=== PATIENT | male | born 1980 | race African-American/Black ===

== ENCOUNTER 2016-11-24 15:58 | Inpatient (IN) | payer OTHER ==
[~2016-11-24] VITALS: Ht 182.9 cm; Wt 95.3 kg
--- NOTE | ~2016-11-24 | HP ---
Unit #: [id number] #: [id number] Patient: JC MOLINA JR [id number] [place] [address] [id number] MR#: [id number] NAME: JC MOLINA JR ROOM: P174 Age: 36 Sex: M Admission Date: 11/24/2016 : 1980 Attending Physician: Shahzad Salazar M.D. Admitting Physician: Shahzad Salazar M.D. Primary Care Physician: Primary Care Physician No HISTORY AND PHYSICAL HISTORY OF PRESENT ILLNESS Jc is a 36-year-old male admitted to [facility] because of his drug use. He uses heroin. PAST MEDICAL HISTORY Long history of opioid abuse to include heroin. PAST SURGICAL HISTORY Nothing reported. ALLERGIES No known drug allergies. SOCIAL HISTORY Smokes 1 pack per day. Drinks alcohol rarely. Admits to using marijuana on a daily basis and has a long history of opioid abuse to include daily use of heroin. FAMILY HISTORY Medically noncontributory. REVIEW OF SYSTEMS CONSTITUTIONAL: No fever or chills. HEENT: Denies any sore throat, ear pain or runny nose. CARDIOVASCULAR: Denies chest pain, irregular heart rhythm or palpitations. CHEST: Denies shortness of breath or cough. No hemoptysis. GASTROINTESTINAL: Denies nausea, vomiting, diarrhea or chronic constipation. ENDOCRINE: Denies history of increased thirst or urination. No recent significant weight loss or gain. GENITOURINARY: Denies dysuria, frequency, or hematuria. SKIN: Denies any rashes. HEMATOLOGIC: Denies history of increased bleeding or bruising. MUSCULOSKELETAL: Denies any hot, swollen joints. No generalized muscle pain. NEUROLOGIC: Denies problems with vision or speech. No frequent, severe headaches. No numbness, tingling or weakness in any extremities. Denies loss of bladder or bowel control. CURRENT MEDICATIONS Detox protocol. PHYSICAL EXAMINATION Unit #: [id number] #: [id number] Patient: JC MOLINA JR GENERAL: Alert, well-nourished, in no apparent distress. VITAL SIGNS: Blood pressure 132/94, heart rate 70, respirations 16, temperature 98.6. WEIGHT: 210. HEIGHT: 6 feet 0 inches. SKIN: Warm and dry without rash or lesion. HEENT: Normocephalic. TMs not viewed. Oral and nasal passages clear. Conjunctivae clear. PERRLA. EOMs intact. NECK: Supple without lymphadenopathy or thyromegaly. HEART: Regular rate and rhythm without murmur. LUNGS: Clear. ABDOMEN: Soft, nontender. : Not done. EXTREMITIES: No evidence of cyanosis, clubbing or edema. Moves all without focal deficit. NEUROLOGICAL: Grossly within normal limits. Cranial Nerves: II: Visual molina are intact. III, IV AND : Extraocular movements are intact. Pupils are equal, round and reactive to light. V: Facial sensation is grossly normal. VII: Facial movements and expression are normal. VIII: Auditory acuity grossly intact. IX, X: Uvula is midline. Phonation is normal. XI: Patient shrugs shoulders and turns head normally. XII: Tongue protrudes in the midline. Sensory and Motor Function: Sensory and motor sensation is grossly normal. Motor: moves all extremities well. Coordination: Gait is normal. Deep Tendon Reflexes: Intact. IMPRESSION Psychiatric admission. RECOMMENDATIONS PSYCHIATRIC: Per psychiatrist. MEDICAL: See no contraindication to participate in facility's activities. MEDICAL PROGNOSIS Good. MEDICAL CONDITION Stable. Dictated by... Kylie Tamez P.A.-C. for Lupe Monahan/shaun TD: 11/25/2016 21:41 JOB #: [id number] Unit #: [id number] #: [id number] Patient: JC MOLINA HISTORY AND PHYSICAL Page 1 of 1 X Kylie Tamez X HISTORY AND PHYSICAL
--- NOTE | ~2016-11-24 | PN ---
Unit #: [id number] #: [id number] Patient: JC MOLINA JR [id number] [facility] [address] [place] [address] [id number] MR#: [id number] NAME: JC MOLINA JR ROOM: [facility] Age: 36 Sex: M Admission Date: 11/24/2016 : 1980 Attending Physician: Shahzad Salazar M.D. Admitting Physician: Shahzad Salazar M.D. Primary Care Physician: Primary Care Physician Jaki ALVAREZ NOTES DATE 11/27/2016 DISCUSSION Jc Molina is a 36-year-old male, seen on 11/27/2016. The patient interviewed, chart reviewed, and obtained information from the nursing staff. The patient was compliant and cooperative. Mood sad and dysphoric, but isolative. The patient's vital signs stable, 98.4, 105, 123/83. Seclusive, isolative. REVIEW OF SYSTEMS Complete review of systems unremarkable. MENTAL STATUS EXAMINATION General appearance: Patient dressed casually. Attention span and concentration, fair. Oriented in time, place, and person. Mood and affect, sad and dysphoric. Speech, monotone. Thought process, concrete. The patient denied any thoughts of harming self or others. Recent and remote memory, poor. Insight and judgment, poor. DIAGNOSES 1. Major depressive disorder, recurrent, severe, F33.2. 2. Opiate use disorder, severe, F11.20. ASSESSMENT/PLAN Advised to continue with the current medication and therapeutic protocol, and if needed consider further adjustment of medication. Dictated by... Lupe Echavarria/ermelinda TD: 11/30/2016 07:48 JOB #: [id number] Unit #: [id number] #: [id number] Patient: JC MOLINA JR [place] PROGRESS NOTES Page 1 of 1 X Shahzad Salazar MD PROGRESS NOTE
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
--- NOTE | ~2016-11-24 | PN ---
Unit #: [id number] #: [id number] Patient: JC MOLINA JR [id number] [facility] [address] [place] [address] [id number] MR#: [id number] NAME: JC MOLINA JR ROOM: 74 Age: 36 Sex: M Admission Date: 11/24/2016 : 1980 Attending Physician: Shahzad Salazar M.D. Admitting Physician: Shahzad Salazar M.D. Primary Care Physician: Primary Care Physician Jaki KAMINSKI PROGRESS NOTES DATE 11/28/2016 DISCUSSION Jc Molina is a 36-year-old male, seen on 11/28/2016. The patient interviewed, chart reviewed, and obtained information from the nursing staff. The patient tolerating medication fairly well, compliant, cooperative. The patient will be getting ReVia challenge today and if no withdrawal symptoms, plan to give injection of Vivitrol 380 mg. REVIEW OF SYSTEMS Complete review of systems unremarkable. MENTAL STATUS EXAMINATION General appearance: Patient dressed casually. Attention span and concentration, fair. Oriented in time, place, and person. Mood and affect, labile. Speech, regular rate. Thought process, goal-directed. The patient denied any thoughts of harming self or others. Recent and remote memory, poor. Insight and judgment, poor. DIAGNOSIS Opiate use disorder, severe, F10.20. ASSESSMENT/PLAN 1. Supportive psychotherapy and psychoeducation provided to the patient. 2. Advised to continue with current treatment and if needed consider further adjustment of medication. Dictated by... Lupe Echavarria/ermelinda TD: 12/01/2016 08:40 JOB #: [id number] Unit #: [id number] #: [id number] Patient: JC MOLINA JR [facility] PROGRESS NOTES Page 1 of 1 X Shahzad Salazar MD PROGRESS NOTE
--- NOTE | ~2016-11-24 | DS ---
Unit #: [id number] #: [id number] Patient: JC MOLINA JR [id number] [facility] [address] [place] [address] [id number] MR#: [id number] NAME: JC MOLINA JR ROOM: 74 Age: 36 Sex: M Admission Date: 11/24/2016 : 1980 Discharge Date: 11/29/2016 Attending Physician: Shahzad Salazar M.D. Primary Care Physician: Primary Care Physician No DISCHARGE SUMMARY REASON FOR ADMISSION Detox. DIAGNOSTIC STUDIES LABORATORY RESULTS: Urine drug screen positive for marijuana and opioids. HOSPITAL COURSE The patient was admitted to inpatient unit on 11/24/2016 and discharged on 11/29/2016. The patient was treated with group therapy, individual therapy, and medication management. The patient was responsive to treatment and showed improvement. The patient was given a ReVia challenge and then scheduled to get an injection Vivitrol shot today, injection Vivitrol 380 mg deep intramuscular IM every 30 days. DISCHARGE MEDICATIONS None. DISCHARGE DIAGNOSES Psychiatric: Mood disorder, not otherwise specified, F32.9; opioid use disorder, severe, F11.20; and cannabis abuse, moderate, F12.20. Secondary diagnosis: Deferred. Medical diagnosis: None. Stressors: Psychosocial stressors. DISCHARGE INSTRUCTIONS The patient to follow up in IOP level of care at [facility] . PROGNOSIS Guarded. DIET AND ACTIVITY As tolerated. Dictated by... Shahzad Salazar M.D. SZC/rufinol TD: 11/29/2016 16:24 Unit #: [id number] #: [id number] Patient: JC MOLINA JR JOB #: [id number] DISCHARGE SUMMARY Page 1 of 1 X Shahzad Salazar MD X DISCHARGE SUMMARY
--- NOTE | ~2016-11-24 | PN ---
Unit #: [id number] #: [id number] Patient: JC MOLINA JR [id number] [facility] [address] [place] [address] [id number] I MR#: [id number] NAME: CJ MOLINA JR ROOM: 74 Age: 36 Sex: M Admission Date: 11/24/2016 : 1980 Attending Physician: Shahzad Salazar M.D. Admitting Physician: Shahzad Salazar M.D. Primary Care Physician: Primary Care Physician Jaki KAMINSKI PROGRESS NOTES DATE 11/26/2016 DISCUSSION Mr. Jc Molina is a 36-year-old male, seen on 11/26/2016. The patient still having withdrawal, nervousness, anxiety, nausea. The patient was interested in Vivitrol injection. Vital signs, 97.7, 61, 101/63. The patient continues to be isolative, flat affect. REVIEW OF SYSTEMS Complete review of systems unremarkable. MENTAL STATUS EXAMINATION General appearance: Patient dressed casually. Attention span and concentration, fair. Oriented in time, place, and person. Mood and affect, sad, depressed, withdrawn, isolative, having withdrawal symptoms. Recent and remote memory, poor. Insight and judgment, poor. DIAGNOSES 1. Mood disorder, NOS. 2. Opiate use disorder. ASSESSMENT/PLAN Advised to continue with the current medication and therapeutic protocol, and advised to start ReVia on Tuesday and injection of Vivitrol 380 mg intramuscularly on Tuesday, if the patient is successfully with the ReVia Challenge continue with the inpatient programming in the meantime. Dictated by... Lupe Echavarria/ermelinda TD: 11/29/2016 05:47 JOB #: [id number] Unit #: [id number] #: [id number] Patient: JC OMLINA JR [facility] PROGRESS NOTES Page 1 of 1 X Shahzad Salazar MD PROGRESS NOTE
--- NOTE | ~2016-11-24 | PN ---
Unit #: [id number] #: [id number] Patient: JC MOLINA JR [id number] [facility] [address] [place] [address] [id number] MR#: [id number] NAME: JC MOLINA JR ROOM: 74 Age: 36 Sex: M Admission Date: 11/24/2016 : 1980 Attending Physician: Shahzad Salazar M.D. Admitting Physician: Shahzad Salazar M.D. Primary Care Physician: Primary Care Physician Jaki KAMINSKI PROGRESS NOTES DATE 11/25/2016 DISCUSSION Ms. Jc Molina is a 36-year-old female, seen on 11/25/2016. The patient interviewed, chart reviewed, and obtained information from the nursing staff. The patient was compliant and cooperative. Mood was labile. The patient was withdrawn, isolative, guarded, flat affect, sad and dysphoric. REVIEW OF SYSTEMS Complete review of systems unremarkable. MENTAL STATUS EXAMINATION General appearance: Patient dressed casually. Oriented in time, place, and person. Mood and affect, labile. Speech, monotone. Thought process, concrete. The patient denied any thoughts of harming self or others. Recent and remote memory, poor. Insight and judgment, poor. DIAGNOSIS Mood disorder, NOS. ASSESSMENT/PLAN Advised to continue with the current medication and therapeutic protocol, if needed consider further adjustment of medication. Dictated by... Lupe Echavarria/ermelinda TD: 11/26/2016 07:46 JOB #: [id number] Unit #: [id number] #: [id number] Patient: JC MOLINA JR [facility] PROGRESS NOTES Page 1 of 1 X Shahzad Salazar MD PROGRESS NOTE
[2016-11-25 09:39] LABS: BASOPHIL% 0.4 % (0-2.5); EOSINOPHIL# 0.1 X10e3 (0-0.7); EOSINOPHIL% 1.6 % (0.0-7.0); HEMATOCRIT 45.1 % (38.0-50.0); HEMOGLOBIN 15.2 gm/dL (13.0-16.0); LYMPHOCYTE# 2.1 X10e3 (1.0-3.5); LYMPHOCYTE% 33.9 % (17.0-45.0); MEAN CELL VOLUME 98.2 FL (83-96); MEAN CORPUSCULAR HEMOGLOBIN 33.1 PG (28-34); MEAN CORPUSCULAR HGB CONC 33.7 g/dL (30-36); MEAN PLATELET VOLUME 8.6 FL (6.5-11.5); MONOCYTE# 0.5 X10e3 (0-1.0); NEUTROPHIL# 3.5 X10e3 (1.5-7.1); NEUTROPHIL% 56.1 % (40-75); PLATELET COUNT 195 X10e3 (140-420); RED BLOOD COUNT 4.59 X10e (3.90-5.60); RED CELL DISTRIBUTION WIDTH 12.9 % (11.0-15.5); WHITE BLOOD COUNT 6.2 X10e3 (4.0-10.5)
[2016-11-25 09:50] LABS: DIFF IND NO
[2016-11-25 09:54] LABS: ALBUMIN SERUM 4.5 g/dL (3.5-5.0); BILIRUBIN,TOTAL 0.7 mg/dL (0.2-2.0); BUN/CREATININE RATIO 11.11; CALCIUM SERUM 9.7 mg/dL (8.4-10.2); CREATININE SERUM 0.9 mg/dL (0.6-1.4); GLOM FILT RATE Estimated 126.9 mL/min (>60); POTASSIUM 4.3 mmol/L (3.5-5.1); PROTEIN TOTAL SERUM 7.1 g/dL (6.0-8.3)
[2016-11-26 10:11] LABS: URINE APPEARANCE CLEAR; URINE BILIRUBIN NEG (NEG); URINE BLOOD NEG (NEG); URINE COLOR YELLOW; URINE GLUCOSE NEG (NEG); URINE KETONE 1+ (NEG); URINE LEUKOCYTE ESTERASE NEG (NEG); URINE NITRATE NEG (NEG); URINE PH 6.5 (5-8); URINE PROTEIN NEG (NEG)
[2016-11-26 10:44] LABS: AMPHETAMINE NEG (NEG); BARBITURATES NEG (NEG); BENZODIAZEPINES NEG (NEG); COCAINE NEG (NEG); MARIJUANA POS (NEG); OPIATES POS (NEG); TRICYCLIC ANTIDEPRESSANTS NEG (NEG); U METHADONE NEG (NEG)
== END 2016-11-29 10:32 | DRG 885 ==
LOC: P1E 21:05
PROVIDERS: Psychiatry & Neurology Psychiatry
PROC: HZ2ZZZZ Detoxification Services for Substance Abuse Treatment (ICD-10-PCS; principal; 2016-11-25)
DX: F33.2 Major depressive disorder, recurrent severe without psychotic features (principal); F11.20 Opioid dependence, uncomplicated; F12.20 Cannabis dependence, uncomplicated
CPT/HCPCS: 80053; 80307; 81003; 85025; 86592; J2550